=== PATIENT | male | born 1950 | race Caucasian/White ===

== ENCOUNTER 2018-05-06 08:08 | Day surgery (SDC) | payer BC, MEDICARE ==
[~2018-05-06] VITALS: Ht 170.2 cm; Wt 83.9 kg
[2018-05-06] VITALS (7 sets, daily range): BP systolic 127–167; BP diastolic 78–92
--- NOTE | 2018-05-06 07:12 | Anethesia Preoperative Eval ---
Anesthesia Pre-op PMH/ROS General Date of Evaluation: May 06, 2018 Time of Evaluation: 07:10 Anesthesiologist: kong ASA Score: ASA 3 Mallampati Score Class I : Soft palate, uvula, fauces, pillars visible Class II: Soft palate, uvula, fauces visible Class III: Soft palate, base of uvula visible Class IV: Only hard plate visible Mallampati Classification: Class II Surgeon: christy Diagnosis: gerd Surgical Procedure: egd/colonoscopy Anesthesia History: none Family History: no anesthesia problems Allergies: Uncoded Allergies: STATIN (Allergy, Intermediate, MUSCLE SPASM, 02/26/12) Medications: see eMAR Patient NPO?: Yes Past Medical History Pulmonary: Reports: other - bph Gastrointestinal/Genitourinary: Reports: GERD Endocrine: Reports: DM, hypothyroidism Anesthesia Pre-op Phys. Exam Physician Exam Last Vital Signs Date Time Temp Pulse Resp B/P (MAP) Pulse Ox O2 Delivery O2 Flow Rate FiO2 05/06/18 09:18 Room Air 05/06/18 09:05 97.0 58 18 132/79 98 Constitutional: NAD Neurologic: CN 2-12 intact Cardiovascular: RRR Respiratory: CTA Gastrointestinal: S/NT/ND Airway Exam Mallampati Score: Class II MO: limited Neck: flexible TMD: 2fb ROM: limited Anesthesia Pre-op A/P Risk Assessment & Plan Assessment: asa3 Plan: mac Status Change Before Surgery: No Pre-Antibiotics Drug: Angela Menchaca MD May 06, 2018 07:12
[~2018-05-06 08:08] MED LIST: ASPIR-LOW81 MG PO; Atropine Inj 1mg/10ml Syr IV PRN; DiphenhydrAMINE 50mg/ml Inj IVP PRN; FISH OIL500 M1 PO; FOLIC ACID20 MG PO; LR 1000ml 1,000 ML IVLG SCH; Midazolam 2mg/2ml Inj IVP PRN; PLAQUENIL200 MG PO; PROSCAR5 MG PO; PROTONIX20 MG PO; SYNTHROID137 MCG PO; fentaNYL 100 mcg/2 mL IV PRN
--- NOTE | 2018-05-06 10:40 | Short Stay Surgery H&P ---
History of Present Illness History of Present Illness Chief Complaint GERDs and abdominal pains/screening colon with history of colon polyps HPI Rahul Cr is a 67 year old male who was admitted on for Gerd,Abdominal Pain /screening for colon polyps Patient History Allergies: Uncoded Allergies: STATIN (Allergy, Intermediate, MUSCLE SPASM, 02/26/12) PAST MEDICAL HISTORY: (1) Diabetes (2) Arthritis (3) BPH (benign prostatic hyperplasia) (4) Hypothyroid (5) Hyperlipidemia Medication History Scheduled Aspirin* (Aspir-Low*), 81 MG PO DAILY, (Reported) Finasteride* (Proscar*), 5 MG PO DAILY, (Reported) Hydroxychloroquine Sulfate* (Plaquenil*), 200 MG PO DAILY, (Reported) Levothyroxine Sodium (Synthroid), 137 MCG PO DAILY, (Reported) Pantoprazole Sodium (Protonix), 20 MG PO DAILY, (Reported) Discontinued Medications Folic Acid (Folic Acid), 20 MG PO DAILY, (Reported) Discontinued Reason: Pt stopped taking med Young-3 Fatty Acids (Fish Oil), 500 MG PO DAILY, (Reported) Discontinued Reason: Pt stopped taking med Review of Systems Respiratory: Reports: no symptoms 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 Preop Interventions None. Summary of Findings See the reports. Attestation Are the patient's medical conditions optimized for surgery? Attestation Response: yes Birdie Ingram MD May 06, 2018 10:40
--- NOTE | 2018-05-06 10:41 | Pre-Procedure Note/Attestation ---
Pre-Procedure Note/Attestation Complete Prior to Procedure Planned Procedure: left Procedure Narrative: Endoscopic examination of the upper and the lower GI tract with obtaining biopsies. Indications for Procedure Pre-Operative Diagnosis: R/O gastritis/gastric ulcer/ colon polyps Attestation I attest that I discussed the nature of the procedure; its benefits; risks and complications; and alternatives (and the risks and benefits of such alternatives ), prior to the procedure, with the patient (or the patient's legal fuels sales representative). I attest that, if there was a reasonable possibility of needing a blood transfusion, the patient (or the patient's legal fuels sales representative) was given the [facility] standardized written summary, pursuant to the [place] Blood Safety Act ([place] Health and Safety Code # 1645, as amended). I attest that I re-evaluated the patient just prior to the surgery and that there has been no change in the patient's H&P, except as documented below: Birdie Ingram MD May 06, 2018 10:41
[2018-05-06] MEDS ORDERED: Lidocaine 1% MPF 10mg/ml 5ml ONE (11:00)
[2018-05-06] MEDS ORDERED: LR 1000ml ONE (11:00)
[2018-05-06] MEDS ORDERED: Propofol 200mg/20ml IV ONE (11:00)
--- NOTE | 2018-05-06 11:35 | Endoscopy Procedure Note ---
Endoscopy Procedure Note General Indication for Procedure: Abdominal pains and history of coloon polyps Procedures Performed: EGD - Completely normal upper GI endoscopy. Biopsy was taken per random from gastric bopdy., colonoscopy - Multiple flat soft polyps were removed from mid and distal transverse and rectosigmoid junction removed by hot snare forceps (benign looking) consistent with adenamatous polyps; otherwise normal total colon. Estimated Blood Loss: none Anesthesia Anesthesiologist: Dr. Melo Anesthesia: moderate sedation Medications Medication Given: see anesthesia record Inserted Devices Implant(s) used?: No Quality Quality of Bowel Preparation: Excellent Did scope reach the cecum?: Yes Was there any complications?: No GI Core Measures 50 yrs or older w/o bx or poly: Yes 10yrs. F/U not recommended: Yes <3yrs. since last colonoscopy: No System Reason:<3 yrs.: Last colonoscopy >= to 3yrs: Yes Birdie Ingram MD May 06, 2018 11:35
--- NOTE | 2018-05-06 11:35 | Discharge Instructions ---
Discharge Instructions Discharge Instructions Follow up with: visit the doctor in office after 2 weeks For Congestive Heart Failure Reminder Report to your physician any weight gain of 5 pounds or more in one week. Birdie Ingram MD May 06, 2018 11:35
--- NOTE | 2018-05-06 11:56 | Immediate Post-Op Evaluation ---
Immediate Post-Op Evalulation Immediate Post-Op Evalulation Procedure: egd/colonoscopy Date of Evaluation: May 06, 2018 Time of Evaluation: 11:53 IV Fluids: 350ml lr Blood Products: none Estimated Blood Loss: negligible Blood Pressure Systolic: 161 Blood Pressure Diastolic: 91 Pulse Rate: 56 Respiratory Rate: 18 O2 Sat by Pulse Oximetry: 100 Temperature (Fahrenheit): 97.8 Pain Score (1-10): 0 Nausea: No Vomiting: No Complications none Patient Status: awake, reacts, patent Hydration Status: adequate Drug: Angela Menchaca MD May 06, 2018 11:56
--- NOTE | 2018-05-06 11:58 | 48 Hour Post Anesthesia Eval ---
Post Anesthesia Evaluation Procedure: egd/colonoscopy Date of Evaluation: May 06, 2018 Time of Evaluation: 11:55 Blood Pressure Systolic: 132 0: 80 Pulse Rate: 58 Respiratory Rate: 18 Temperature (Fahrenheit): 97.8 O2 Sat by Pulse Oximetry: 100 Airway: patent Nausea: No Vomiting: No Pain Intensity: 0 Hydration Status: adequate Cardiopulmonary Status: stable Mental Status/LOC: patient returned to baseline Post-Anesthesia Complications: none Follow-up care needed: N/A Angela Calle MD May 06, 2018 11:58
--- NOTE | 2018-05-06 17:30 | Procedure Note ---
DATE OF PROCEDURE: 05/06/2018 SURGEON: Birdie Ingram M.D. PROCEDURE: Esophagogastroduodenoscopy with biopsy. PREOPERATIVE DIAGNOSIS: Abdominal pain, rule out peptic ulcer disease. POSTOPERATIVE DIAGNOSIS: Completely normal upper gastrointestinal endoscopy with the some bile in the stomach consistent with duodenal gastric bile reflux. Random biopsy from gastric body obtained. MEDICATIONS: Per Dr. Melo, anesthesiologist. INSTRUMENT: GIF Olympus upper GI video endoscope. DESCRIPTION OF PROCEDURE: The patient after arriving an endoscopy unit, was told about risks and benefits of the procedure which he accepted and signed informed consent. At this time, he was put on the left lateral decubitus position. After adequate IV sedation, the scope was passed through the cricopharyngeal area, was lodged into the upper esophagus and gradually advanced towards gastroesophageal junction. The entire length of the esophagus looked normal. GE junction also looked completely normal. At this time, the scope was advanced into the stomach. Gastric cavity was distended with insufflation of air. The areas of the fundus and the body and the antrum were examined which revealed completely normal and no evidence of ulcers or inflammatory process was seen. However, there was moderate amount of bile in the stomach suggestive of duodenal gastric bile reflux. At this point, one random biopsy from gastric body obtained and subsequently scope was passed through the pylorus. First and second portion of duodenum were found to be completely normal. The scope was pulled back into the stomach and retroflexion maneuver was applied. The area of the gastroesophageal junction was examined from a closer angle and this did not reveal any other abnormalities. Finally, the scope was pulled out and the procedure was terminated. The patient tolerated the procedure well. Birdie Ingram M.D. DR: Lianne JOB#: [id number] CC:
--- NOTE | 2018-05-06 18:00 | Operative Note - Dictated ---
DATE OF OPERATION: 05/06/2018 SURGEON: Birdie Ingram M.D. PROCEDURE: Total colonoscopy with multiple polypectomies. PREOPERATIVE DIAGNOSIS: History of colon polyps. POSTOPERATIVE DIAGNOSIS: Three colon polyps were removed from the mid and distal transverse colon and the rectosigmoid angle. The polyps were soft and flat and they were removed totally by hot snare cautery forceps, otherwise normal total colonoscopy. MEDICATION USED: Per Dr. Melo, anesthesiologist. INSTRUMENT: GIF Olympus videocolonoscope. DESCRIPTION OF PROCEDURE: The patient, after arriving in endoscopy unit, was told about risks and benefits of the procedure which she accepted and signed informed consent. At this time, the patient was put on the left lateral decubitus position. After adequate IV sedation, the scope was gently passed through the anal area, which did not reveal any abnormalities such as hemorrhoids, tumors, polyps, etc. At this time, the scope was gradually passed through the rectosigmoid area. At the level of 30 cm from the anus, there was a polyp of the size of 7 to 8 mm, soft in nature, and flattened type was seen that was grabbed with hot snare cautery forceps and totally removed. The specimen was sent to the pathology lab. Subsequently, the scope was passed through the left descending colon, gradually advanced towards the splenic flexure and from there, it was guided into the transverse colon. At the distal level of the transverse colon, there was another soft polypoid similar lesion which was flat again and it was grabbed with hot snare cautery forceps and totally removed along with finding another polyp in mid transverse. With a similar manner, it was also removed and all the specimen was sent to the pathology lab. Finally, the scope reached through the hepatic flexure guided into the right colon all the way to the base of the cecum and there was no any other abnormality. At this time, within 7 minutes, the scope was gradually pulled out and reexamination did not reveal any other abnormalities. The colon cleanup was adequate. The patient tolerated the procedure well and left the endoscopy room in good condition. Birdie Ingram M.D. DR: Davis JOB#: [id number] CC:
== END 2018-05-06 13:15 | disposition home or self-care (01) ==
LOC: SDS 08:08
DX: Z12.11 Encounter for screening for malignant neoplasm of colon (principal); D12.3 Benign neoplasm of transverse colon; D12.7 Benign neoplasm of rectosigmoid junction; Z86.010 Personal history of colon polyps; K21.9 Gastro-esophageal reflux disease without esophagitis; K29.50 Unspecified chronic gastritis without bleeding; E11.9 Type 2 diabetes mellitus without complications; M19.90 Unspecified osteoarthritis, unspecified site; N40.0 Benign prostatic hyperplasia without lower urinary tract symptoms; E03.9 Hypothyroidism, unspecified; E78.5 Hyperlipidemia, unspecified; Z79.82 Long term (current) use of aspirin; Z88.8 Allergy status to other drugs, medicaments and biological substances
CPT/HCPCS: 43239; 45385; J2704; 94003; 94150